=== PATIENT | female | born 1965 | race Two or more races ===

== ENCOUNTER 2023-04-15 10:25 | Outpatient (CLI) | payer OTHER, SELFPAY ==
--- NOTE | ~2023-04-15 | MR_ITS ---
EXAMINATION: MR knee LT wo con DATE: 04/15/2023 12:16 INDICATION: Deep anterior left knee pain 3 weeks post hyperextension injury TECHNIQUE: Magnetic resonance imaging (MRI) of the left knee was performed without intravenous contra st. Sequences included coronal PD-weighted FSE, coronal PD-weighted FS FSE, sagittal T2-weighted FSE , sagittal PD-weighted FS FSE and axial PD weighted fat saturated FSE. COMPARISON: None. FINDINGS: Medial compartment: Medial meniscus is normal. Articular cartilage is normal. Lateral compartment: Lateral meniscus is normal. Articular cartilage is normal. Patellofemoral compartment: Partial-thickness chondral ulceration with small region of underlying subarticular edema-like signal change at the inferior aspect of the medial trochlea. Ligaments and tendons: Anterior and posterior cruciate ligaments are normal. The medial collateral ligament and fibular aminata ateral ligament complex are normal. The extensor mechanism is normal. The visualized medial and later al hamstring tendons as well as the iliotibial band are normal. Fluid: Physiologic amount of fluid in the joint space. No loose osteochondral bodies identified. Small Mathew 's cyst. Osseous/other: Bone alignment is normal. No fracture or pathologic marrow replacing process. There is increased flui d signal in the superficial suprapatellar fat pad which can be seen with fat pad impingement syndrome . IMPRESSION: 1. 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 2. Edema at the superficial suprapatellar fat pad which can be seen with fat pad impingement syndrome . 3. Small Mathew's cyst. Reviewed, dictated and finalized at location A. IMPRESSION: 1. Mild patellofemoral osteoarthritis with small region of high-grade chondroma lacia at the inferior aspect of the medial trochlea. 2. Edema at the superficial suprapatellar fat pad which can be seen with fat pa d impingement syndrome. 3. Small Mathew's cyst.
== END 2023-04-15 10:26 | disposition home or self-care (01) ==
LOC: CHSIMG 10:28
PROVIDERS: PCP Family Medicine; Visit Provider Family Medicine
DX: M23.42 Loose body in knee, left knee (principal); M17.12 Unilateral primary osteoarthritis, left knee; R60.9 Edema, unspecified; M71.22 Synovial cyst of popliteal space [Baker], left knee; R93.7 Abnormal findings on diagnostic imaging of other parts of musculoskeletal system
CPT/HCPCS: 73721